=== PATIENT | female | born 1980 | race Caucasian/White ===

== ENCOUNTER 2022-10-25 12:54 | Outpatient (CLI) | payer OTHER ==
[~2022-10-25 12:54] MED LIST: ALPRAZOLAM0.025 GM
== END 2022-10-25 13:33 | disposition home or self-care (01) ==
LOC: NST 12:54
PROVIDERS: ATTEND Obstetrics & Gynecology Maternal & Fetal Medicine
DX: Z34.83 Encounter for supervision of other normal pregnancy, third trimester (principal)

== ENCOUNTER 2022-11-01 13:00 | Inpatient (IN) | payer OTHER ==
[~2022-11-01] VITALS: Ht 160 cm; Wt 2.7 kg
[2022-11-04] MEDS ORDERED: UNISOM SLEEP AI25 MG PO (13:46)
[2022-11-04] MEDS ORDERED: IRON325 MG PO (13:47)
[2022-11-04] MEDS ORDERED: PRENATAL TABLE1 EAC1 PO (13:47)
[2022-11-09] MEDS ORDERED: KETO10TA2 PO (09:50)
[2022-11-09] MEDS ORDERED: PERCOCET 5-3251 EACH PO (09:51)
== END 2022-11-09 11:32 | disposition home or self-care (01) | DRG 787 ==
LOC: LDR 11-04 13:28 → OB/GYN 11-06 17:57
PROVIDERS: ADMIT Obstetrics & Gynecology Maternal & Fetal Medicine; ATTEND Obstetrics & Gynecology Maternal & Fetal Medicine
PROC: 4A1HXCZ Monitoring of Products of Conception, Cardiac Rate, External Approach (ICD-10-PCS; 2022-11-04)
PROC: 3E0P7VZ Introduction of Hormone into Female Reproductive, Via Natural or Artificial Opening (ICD-10-PCS; 2022-11-05)
PROC: 0UB90ZZ Excision of Uterus, Open Approach (ICD-10-PCS; 2022-11-06)
PROC: 3E033VJ Introduction of Other Hormone into Peripheral Vein, Percutaneous Approach (ICD-10-PCS; 2022-11-06)
PROC: 10D00Z1 Extraction of Products of Conception, Low, Open Approach (ICD-10-PCS; principal; 2022-11-06 16:00)
DX: O61.0 Failed medical induction of labor (principal); O10.02 Pre-existing essential hypertension complicating childbirth; O34.13 Maternal care for benign tumor of corpus uteri, third trimester; D25.2 Subserosal leiomyoma of uterus; Z3A.37 37 weeks gestation of pregnancy; Z37.0 Single live birth